=== PATIENT | female | born 1975 | race Two or more races ===

== ENCOUNTER 2017-03-14 20:16 | Emergency (ER) | payer SELFPAY ==
[~2017-03-14] VITALS: Ht 157.5 cm; Wt 108.0 kg
[~2017-03-14 20:16] MED LIST: ATEN-60 PO; FERR324T4 PO; LORA-154 PO; MEC25T PO; MEDR5TAB PO; SULF-92 PO
[2017-03-14 21:07] LABS: Basophils # (auto) 0.1 uL; Eosinophils # (auto) 0.3 uL; Hemoglobin 9.8 g/dL (12.2-16.2); Mean Corpuscular Hemoglobin 18.5 pg (28.0-32.0); Red Cell Distribution Width 19.1 % (11.8-14.3)
[2017-03-14 21:10] LABS: Basophils % (auto) 1.3 % (0.0-2.0); Eosinophils % (auto) 3.5 % (0.0-7.0); Hematocrit 31.8 % (36.0-46.0); Lymphocytes # (auto) 2.2 uL; Lymphocytes % (auto) 23.2 % (10.0-50.0); Mean Corpuscular Hgb Conc. 30.6 g/dL (32.0-36.0); Mean Corpuscular Volume 60.4 fL (80.0-100.0); Mean Platelet Volume 8.5 fL (6.9-10.8); Monocytes # (auto) 0.7 uL; Monocytes % (auto) 7.2 % (0.0-12.0); Neutrophils # (auto) 6.1 uL; Neutrophils % (auto) 64.8 % (37.0-80.0); Platelet Count (auto) 351 10^3/uL (140-450); White Blood Cell 9.4 10^3/uL (4.4-10.8)
[2017-03-14 21:31] LABS: INR 0.94 (0.9-1.15); Partial Thromboplastin Time 25.5 sec (22.64-33.71); Prothrombin Time 10.2 sec (9.37-12.3)
[2017-03-14 21:42] LABS: Albumin 3.5 g/dL (3.4-5.0); Alkaline Phosphatase 122 U/L (45-117); Anion Gap 7 (5-15); Aspartate Aminotransferase 16 U/L (15-37); BUN/Creatinine Ratio 15.4; Bilirubin, Total 0.2 mg/dL (0.2-1.0); Blood Urea Nitrogen 12 mg/dL (7-18); Calcium 8.2 mg/dL (8.5-10.1); Carbon Dioxide 26 mmol/L (21-32); Chloride 103 mmol/L (98-107); GFR African American 105 mL/min; GFR Non-African American 87 mL/min; Glucose 99 mg/dL (74-106); Magnesium 2.2 mg/dL (1.6-2.6); Potassium 3.7 mmol/L (3.5-5.1); Sodium 136 mmol/L (136-145); Total Protein 8.6 g/dL (6.4-8.2)
[2017-03-14 21:58] LABS: Urine Bilirubin Negative (Negative); Urine Blood Negative /uL (Negative); Urine Color Yellow (Yellow); Urine Glucose Normal (Normal); Urine Hyaline Cast FEW /lpf (0 - 2); Urine Ketone Negative (Negative); Urine Mucus FEW (None Seen); Urine Nitrite Negative (Negative); Urine RBC <1 /hpf (0 - 4); Urine Squamous Epithelial Cell FEW /hpf (<5); Urine Urobilinogen Normal (Negative)
[2017-03-14 22:23] LABS: Anisocytosis Moderate; Hypochromia Moderate; Microcytosis Marked; Platelet Estimate Adequate
[2017-03-15] MEDS ORDERED: KETOROLAC TROMETH 30 MG/ML 1ML VIAL IV ONE (00:30)
[2017-03-15] MEDS ORDERED: ASPirin-EC 325mg tab PO ONE (00:30)
[2017-03-15 04:19] VITALS: BP 132/76
== END 2017-03-15 05:33 | disposition home or self-care (01) ==
LOC: ER 20:16
DX: R07.89 Other chest pain (principal); E11.9 Type 2 diabetes mellitus without complications
CPT/HCPCS: 36415; 71010; 80053; 80307; 81001; 81025; 83735; 84484; 85025; 85610; 85730; 96374; 99285; J1885

== ENCOUNTER 2017-08-04 16:59 | Emergency (ER) | payer MEDICAID ==
[~2017-08-04] VITALS: Ht 149.9 cm; Wt 110.7 kg
[2017-08-04 19:16] VITALS: BP 147/82
[2017-08-04] MEDS ORDERED: IBUPROFEN 600 MG TAB PO ONE (20:00)
== END 2017-08-04 20:48 | disposition home or self-care (01) ==
LOC: ER 17:08
DX: S83.92XA Sprain of unspecified site of left knee, initial encounter (principal); E11.9 Type 2 diabetes mellitus without complications; X58.XXXA Exposure to other specified factors, initial encounter; Y93.89 Activity, other specified; Y99.8 Other external cause status; Y92.89 Other specified places as the place of occurrence of the external cause
CPT/HCPCS: 73562

== ENCOUNTER 2018-08-23 17:04 | Emergency (ER) | payer MEDICAID ==
[~2018-08-23] VITALS: Ht 154.9 cm; Wt 99.3 kg
[2018-08-23 17:26] VITALS: BP 156/93
[2018-08-23] MEDS ORDERED: LORazepam 0.5 MG TAB PO ONE (19:15)
[2018-08-23] MEDS ORDERED: ASPirin 81 mg TAB PO ONE (19:15)
[2018-08-23 19:59] LABS: Basophils # (auto) 0 uL; Eosinophils # (auto) 0.1 uL; Hematocrit 27.2 % (36.0-46.0); Mean Corpuscular Hgb Conc. 29.4 g/dL (32.0-36.0); Monocytes # (auto) 0.3 uL; Nucleated Red Blood Cells % 0.1 %
[2018-08-23 20:03] LABS: Basophils % (auto) 0.7 % (0.0-2.0); Eosinophils % (auto) 2.3 % (0.0-7.0); Lymphocytes # (auto) 0.8 uL; Lymphocytes % (auto) 16.1 % (10.0-50.0); Mean Corpuscular Hemoglobin 16.8 pg (28.0-32.0); Mean Corpuscular Volume 57.1 fL (80.0-100.0); Neutrophils # (auto) 3.5 uL; Neutrophils % (auto) 73.9 % (37.0-80.0); Platelet Count (auto) 313 10^3/uL (140-450); Red Blood Cells 4.76 10^6/uL (4.0-5.20); Red Cell Distribution Width 19.1 % (11.8-14.3); White Blood Cell 4.7 10^3/uL (4.4-10.8)
[2018-08-23 20:21] LABS: Albumin 3.3 g/dL (3.4-5.0); Anion Gap 9 (5-15); Blood Urea Nitrogen 16 mg/dL (7-18); Calcium 8.3 mg/dL (8.5-10.1); Carbon Dioxide 25 mmol/L (21-32); Chloride 103 mmol/L (98-107); Glucose 114 mg/dL (74-106); Potassium 3.8 mmol/L (3.5-5.1); Sodium 137 mmol/L (136-145)
[2018-08-23 20:27] LABS: Alanine Aminotransferase 23 U/L (13-56); Alkaline Phosphatase 106 U/L (45-117); Aspartate Aminotransferase 24 U/L (15-37); BUN/Creatinine Ratio 18.4; Bilirubin, Total 0.2 mg/dL (0.2-1.0); GFR African American 91 mL/min; GFR Non-African American 76 mL/min; Total Protein 7.9 g/dL (6.4-8.2)
== END 2018-08-23 21:19 | disposition home or self-care (01) ==
LOC: ER 17:10
DX: F41.9 Anxiety disorder, unspecified (principal); R07.89 Other chest pain; I10 Essential (primary) hypertension; E11.9 Type 2 diabetes mellitus without complications
CPT/HCPCS: 36415; 71046; 80053; 84484; 85025; 93005

== ENCOUNTER 2019-01-14 21:05 | Emergency (ER) | payer MEDICAID ==
[~2019-01-14] VITALS: Ht 180.3 cm; Wt 106.6 kg
[~2019-01-14 21:05] MED LIST changes: -MEDR5TAB PO; +MEDR5TAB28 PO
[2019-01-14 22:22] LABS: Urine Bacteria NONE SEEN /hpf (None Seen); Urine Blood Negative /uL (Negative); Urine Specific Gravity 1.018 (1.001-1.035); Urine WBC 1 /hpf (0 - 5)
[2019-01-14] MEDS ORDERED: BACLOFEN 10 MG TAB PO ONE (23:00)
[2019-01-14] MEDS ORDERED: ACETAMINOPHEN/CODEINE#3 (300/30mg) TAB PO ONE (23:00)
[2019-01-14] MEDS ORDERED: cefTRIAXone SOD 1,000 MG VL IM ONE (23:00)
[2019-01-14] MEDS ORDERED: DexAMETHasone SOD PHOS 10MG/1ML VIAL INJ IM ONE (23:00)
[2019-01-14 23:23] VITALS: BP 105/50
== END 2019-01-15 02:25 | disposition home or self-care (01) ==
LOC: ER 21:05
DX: J06.9 Acute upper respiratory infection, unspecified (principal); Z79.899 Other long term (current) drug therapy
CPT/HCPCS: 71045; 81001; 93005; 96372; 99284; J0696; J1100

== ENCOUNTER 2019-12-02 17:51 | Emergency (ER) | payer MEDICAID ==
[~2019-12-02] VITALS: Ht 154.9 cm; Wt 113.4 kg
[2019-12-02 18:00] VITALS: BP 122/63
== END 2019-12-02 20:36 | disposition home or self-care (01) ==
LOC: ER 17:51
DX: T16.2XXA Foreign body in left ear, initial encounter (principal); H66.92 Otitis media, unspecified, left ear; W22.8XXA Striking against or struck by other objects, initial encounter; Y93.89 Activity, other specified; Y92.89 Other specified places as the place of occurrence of the external cause; Y99.8 Other external cause status

== ENCOUNTER 2020-03-14 13:49 | Emergency (ER) | payer MEDICAID ==
[~2020-03-14] VITALS: Ht 154.9 cm; Wt 119.3 kg
[2020-03-14 14:20] VITALS: BP 139/79
== END 2020-03-14 15:43 | disposition home or self-care (01) ==
LOC: ER 13:49
DX: H61.22 Impacted cerumen, left ear (principal); H66.92 Otitis media, unspecified, left ear

== ENCOUNTER 2020-04-11 13:04 | Emergency (ER) | payer MEDICAID ==
[~2020-04-11] VITALS: Ht 154.9 cm; Wt 108.4 kg
[2020-04-11 13:38] VITALS: BP 117/71
== END 2020-04-11 14:28 | disposition home or self-care (01) ==
LOC: ER 13:04
DX: H66.92 Otitis media, unspecified, left ear (principal)

== ENCOUNTER 2020-05-05 10:01 | Emergency (ER) | payer MEDICAID ==
[~2020-05-05] VITALS: Ht 154.9 cm; Wt 108.0 kg
[2020-05-05 10:52] VITALS: BP 150/76
== END 2020-05-05 13:20 | disposition home or self-care (01) ==
LOC: ER 10:01
DX: R91.8 Other nonspecific abnormal finding of lung field (principal); Z20.828 Contact with and (suspected) exposure to other viral communicable diseases
CPT/HCPCS: 36415; 71045; 87426; 93005

== ENCOUNTER 2020-07-10 13:18 | Emergency (ER) | payer MEDICAID ==
[~2020-07-10] VITALS: Ht 154.9 cm; Wt 106.6 kg
[~2020-07-10 13:18] MED LIST changes: -SULF-92 PO; +SULF800T8 PO
[2020-07-10 15:04] VITALS: BP 135/79
== END 2020-07-10 15:14 | disposition home or self-care (01) ==
LOC: ER 13:18
DX: H60.93 Unspecified otitis externa, bilateral (principal); Z79.899 Other long term (current) drug therapy